=== PATIENT | female | born 1945 | race Caucasian/White ===

== ENCOUNTER 2016-05-06 09:19 | Inpatient (IN) | payer OTHER, MEDICARE ==
[2016-05-06] VITALS (7 sets, daily range): BP systolic 128–191; BP diastolic 59–99; PULSE 60–92; RESP 18–26; TEMP 98.2–98.7; O2SAT 96–98
--- NOTE | 2016-05-06 09:48 | PD ---
Physical Exam Date Seen by Provider: May 06, 2016 Time Seen by Provider: 09:40 Narrative Patient seen as a courtesy to Dr. Pardo who had accepted the patient overnight from [facility] as a transfer, patient had been found on the ground, complaining of a headache, has small punctate intracranial hemorrhage, was transferred here for further neurosurgical care. Patient had elevated INR and was also discussed with Dr. Guillory overnight for medical care. GENERAL: Well-nourished, well-developed pleasant elderly white female patient who is awake and alert, answering questions. SKIN: Warm and dry. HEAD: Normocephalic. NECK: Supple, trachea midline. CARDIOVASCULAR: Regular rate and rhythm without murmurs, gallops, or rubs. RESPIRATORY: Breath sounds equal bilaterally. No accessory muscle use. GASTROINTESTINAL: Abdomen soft, non-tender, nondistended. MUSCULOSKELETAL: No cyanosis, or edema. EXTREMITIES: No clubbing, cyanosis, or edema. No joint tenderness, effusion, or edema noted. Moving all 4 extremities. Data Data Last Documented VS Vital Signs Date Time Temp Pulse Resp B/P Pulse Ox O2 Delivery O2 Flow Rate FiO2 05/06/16 09:27 98.7 60 20 159/99 97 Orders Prothrombin Time / Inr (Pt) (05/06/16 10:38) Consult Neurosurgery (05/06/16 ) [facility] Medical Record Reviewed: Yes Supervised Visit with NEGRA: No Narrative Course Case was discussed with Dr. Pardo who would like the patient to get a repeat INR this morning. She would like the patient to be admitted to [facility] as a consult to her and medical admitted. Case was then discussed with Dr. Hardy for admission. Diagnosis Primary Impression: NONTRAUMATIC INTRACRANIAL HEMORRHAGE, UNSPECIFIED Admitting Information Admitting Physician Requests: Admit Edward Carroll MD May 06, 2016 09:48
[2016-05-06] MEDS ORDERED: PHYT10P IV (09:49)
[2016-05-06] MEDS ORDERED: CITA10TA4 PO (09:49)
[2016-05-06] MEDS ORDERED: AMLO2.5T PO (09:49)
[2016-05-06] MEDS ORDERED: NIMO30CA3 PO (09:49)
[2016-05-06] MEDS ORDERED: DIGO0.12 PO (09:49)
[2016-05-06] MEDS ORDERED: LIAL1.2T PO (09:49)
[2016-05-06] MEDS ORDERED: [UNRECOGNIZED DRUG - CODE] IVPB (09:49)
[2016-05-06] MEDS ORDERED: ASPI81CH CHEW (09:49)
[2016-05-06] MEDS ORDERED: WARF-21 PO (09:49)
[2016-05-06] MEDS ORDERED: METO50TA PO (09:49)
[2016-05-06] MEDS ORDERED: LISI2.5T3 PO (09:49)
[2016-05-06] MEDS ORDERED: ALPR0.25 PO (09:49)
[2016-05-06] MEDS ORDERED: MEMA1TAB2 PO (09:49)
[2016-05-06] MEDS ORDERED: VITA100T50 (09:49)
[2016-05-06] MEDS ORDERED: SODIUM CHLORIDE 0.9% FLUSH 5 ML FLUSH FLUSH PRN (11:00)
[2016-05-06] MEDS ORDERED: BISACODYL 10 MG SUPP PR PRN (11:00)
[2016-05-06] MEDS ORDERED: ACETAMINOPHEN 325 MG TAB PO PRN (11:00)
[2016-05-06] MEDS ORDERED: ENALAPRILAT 1.25 MG/ML VIAL IV PRN (11:00)
[2016-05-06] MEDS ORDERED: ACETAMINOPHEN/HYDROcodone 325 MG/7.5 MG TAB PO PRN (11:00)
[2016-05-06] MEDS ORDERED: SENNOSIDES 8.6 MG TAB PO PRN (11:00)
[2016-05-06] MEDS ORDERED: cloNIDine HCL 0.1 MG TAB PO PRN (11:00)
[2016-05-06] MEDS ORDERED: NALOXONE HCL 0.4 MG/ML AMP IV PRN (11:00)
[2016-05-06] MEDS: DOCUSATE SODIUM 100 MG CAP PO SCH ×2 (12:00→21:35)
--- NOTE | 2016-05-06 12:14 | PD.CONS ---
HPI Service Neurosurgery Consult Requested By ED Reason for Consult Closed head injury with LOC and intracranial bleed Primary Care Physician Eldaia Bernabe DO History of Present Illness 70 yr old with hx of falls fell yesterday at home, was brought in to the ED with a GCS of 15. Evaluation revealed a traumatic SAH/SDH. She remains a GCS 15 with baseline dementia. She was on coumadin for afib and her INR is 4.0. She states she does not want IV, care or blood draws and does not care if she dies. She received KCENTRA at the outside hospital, and she is refusing follow up INR. Review of Systems ROS Limitations: Altered Mental Status, Combative, Poor Historian Musculoskeletal: COMPLAINS OF: Joint pain (left shoulder and back pain) Neurologic: COMPLAINS OF: Poor Balance (frequent falls) Past Family Social History Allergies: Coded Allergies: Cipro (Verified Allergy, Severe, Anaphylaxis, 05/06/16) Past Medical History Afib, CAD, HTN Diverticulitis Osteopenia, arthritis Past Surgical History CABG Hysterectomy Cataract surgery Reported Medications Reported Meds & Active Scripts Active Reported Alprazolam 0.25 Mg Tab 0.25 Mg PO DAILY PRN Lialda (Mesalamine) 1.2 Gm Tabdr 1.2 Gm PO DAILY Take with a meal. Lisinopril 2.5 Mg Tab 2.5 Mg PO DAILY Aspirin 81 Mg Chew 81 Mg CHEW DAILY Memantine 10 Mg Tab 10 Mg PO DAILY Digoxin 0.125 Mg Tab 0.125 Mg PO DAILY Citalopram (Citalopram Hydrobromide) 10 Mg Tab 10 Mg PO DAILY Amlodipine (Amlodipine Besylate) 2.5 Mg Tab 2.5 Mg PO DAILY Warfarin 7.5 Mg Tab 7.5 Mg PO DAILY Metoprolol Tartrate 50 Mg Tab 50 Mg PO BID Kcentra Kit (Prothrombin Complex Concent (Human)) 1,000 Unit Kit 2,271.5 IVPB ONCE Vitamin K1 Inj (Phytonadione) 10 Mg/Ml Inj 10 Mg IV ONCE Vitamin K (Phytonadione) 100 Mcg Tab Nimodipine 30 Mg Cap 60 Mg PO ONCE Family History Not knwn Social History Lives with the daughter, does not smoke Physical Exam Vital Signs Vital Signs Date Time Temp Pulse Resp B/P Pulse Ox O2 Delivery O2 Flow Rate FiO2 05/06/16 09:27 98.7 60 20 159/99 97 Alert and combative, speech fluent in salvadorean and moroccan, attention good but very angry, does follow simple commands with all 4 extremities, No facial trauma, generalized pain but refuses pain medication because of sedating side effects Oriented to the hospital and events, as well as to the bleed. Motor good except in the left shoulder but abduction is at least 3/5 Sensation present in all extremities No spasticity or clonus Laboratory Na 141, hgb 14.3, pts 246, INR 4.7, Imaging Head CT shows cerebral atrophy, diffuse SAH and small falcine and tentorial SDH 1-2 mm. Assessment and Plan Diagnosis: (1) SAH (subarachnoid hemorrhage) Plan: We will repeat the CT in the morning and obtain rehab services. The bleed is small and her coumadin was reversed. (2) SDH (subdural hematoma) Plan: Will be followed radiologically and clinically (3) Frequent falls Plan: Gait assessment requested as part of the rehab care Guanaco Pardo May 06, 2016 12:14
[2016-05-06] MEDS ORDERED: ALPRAZolam 0.25 MG TAB PO PRN (13:45)
[2016-05-06] MEDS: hydrALAZINE HCL 20 MG/ML VIAL IV PRN ×2 (14:09→18:24)
[2016-05-06] MEDS ORDERED: PILL SPLITTER OTHER PRN (14:15)
[2016-05-06 16:57] LABS: INTERNATIONAL NORMALIZED RATIO 1.1 RATIO
--- NOTE | 2016-05-06 17:38 | HHI.HP ---
HPI Service [facility] Hospitalists Primary Care Physician Eladia Bernabe DO Admission Diagnosis ICH/elevated inr Diagnoses: Chief Complaint: Supratherapeutic INR, SAH/SDH Travel History International Travel<30 Days: No Contact w/Intl Traveler <30 Da: No Traveled to Known Affected Are: No History of Present Illness Patient is a 70-year-old female with primary medical history includes A. fib on Coumadin, HLD, HTN, history of CVA, dementia, who came in to [facility] status post fall. As per her daughter Trisha, patient was in her bedroom and her [id number] heard a thump coming from her bedroom. She was found lying on the floor on her right side. Reports no lost of consciousness. Patient on Coumadin for A. fib found to have an INR of 4.7. She was given K Centra, Nimodipine, vitamin K at [facility]. Transferred to [facility] for further evaluation. CT of the head and brain without contrast showed multiple small patchy areas of acute arachnoid hemorrhage, within the bilateral frontal regions, within the right posterior parietal region, and the bilateral medial parietaloccipital regions as well as possibly along the left tentorium. Diffuse cerebral volume loss and chronic sequelae of small vessel ischemic disease. X-ray of the pelvis showed no fracture or dislocation or other acute abnormality. Degenerative spondylosis of the spine with some mild osteoarthritis of the hips. Demineralization. X-ray of the right shoulder showed normal right shoulder. X-ray of the lumbar spine showed no fracture, dislocation or other acute abnormality. Demineralization with multilevel degenerative spondylosis. Atherosclerotic vascular calcification. Chest x-ray showed no ede pulmonary edema, consolidation, or pleural effusion identified at this time. Interval development of minimal left basilar subsegmental atelectasis. Stable diffuse chronic interstitial change. Stable post-median sternotomy changes and moderate nonspecific glasgow-cardiomegaly. Patient states she hasn't been feeling well since yesterday. Today she feels "yucky" complaints of headache and nausea. Confused, forgetful secondary to dementia. Otherwise, denies SOB/ dyspnea. Denies chest pain, palpitation, dizziness. Denies fevers, chills, vomiting, diarrhea. As per daughter, patient is always irritable and uncooperative at times. Daughter denies any changes in medications. This is still second time patient has fallen from the past. Review of Systems ROS Limitations: Poor Historian Other Negative except for what is noted on history of present illness. Past Family Social History Past Medical History Angina Anxiety Depression A. fib, on Coumadin Diverticulitis Hyperlipidemia Hypertension Migraines Dementia CVA Past Surgical History CABG 3 Cataract surgery Hysterectomy Reported Medications Alprazolam 0.25 Mg Tab 0.25 Mg PO DAILY PRN Lialda (Mesalamine) 1.2 Gm Tabdr 1.2 Gm PO DAILY Take with a meal. Lisinopril 2.5 Mg Tab 2.5 Mg PO DAILY Aspirin 81 Mg Chew 81 Mg CHEW DAILY Memantine 10 Mg Tab 10 Mg PO DAILY Digoxin 0.125 Mg Tab 0.125 Mg PO DAILY Citalopram (Citalopram Hydrobromide) 10 Mg Tab 10 Mg PO DAILY Amlodipine (Amlodipine Besylate) 2.5 Mg Tab 2.5 Mg PO DAILY Warfarin 7.5 Mg Tab 7.5 Mg PO DAILY Metoprolol Tartrate 50 Mg Tab 50 Mg PO BID Kcentra Kit (Prothrombin Complex Concent (Human)) 1,000 Unit Kit 2,761.5 IVPB ONCE Vitamin K1 Inj (Phytonadione) 10 Mg/Ml Inj 10 Mg IV ONCE Vitamin K (Phytonadione) 100 Mcg Tab Nimodipine 30 Mg Cap 60 Mg PO ONCE Allergies: Coded Allergies: Cipro (Verified Allergy, Severe, Anaphylaxis, 05/06/16) Active Ordered Medications Current Medications Medications (Trade) Dose Ordered Sig/Michelle Route Start Time Stop Time Status Last Admin (NS Flush) 2 ml UNSCH PRN FLUSH 05/06/16 11:00 05/06/16 14:09 (NS Flush) 2 ml BID FLUSH 05/06/16 21:00 (Tylenol) 650 mg Q4H PRN PO 05/06/16 11:00 (Zofran Inj) 4 mg Q6H PRN IVP 05/06/16 11:00 (Dulcolax Supp) 10 mg DAILY PRN CA 05/06/16 11:00 (Colace) 100 mg Q12HR PO 05/06/16 12:00 (Senokot) 17.2 mg Q12H PRN PO 05/06/16 11:00 (Tylenol) 650 mg Q6H PRN PO 05/06/16 11:00 (Questa 5-325 Mg) 1 tab Q4H PRN PO 05/06/16 11:00 (Questa 7.5-325 Mg) 1 tab Q4H PRN PO 05/06/16 11:00 (Morphine Inj) 1 mg Q3H PRN IV 05/06/16 11:00 (Narcan Inj) 0.4 mg UNSCH PRN IV 05/06/16 11:00 (Vasotec Inj) 1.25 mg Q6H PRN IV 05/06/16 11:00 (Apresoline Inj) 10 mg Q6H PRN IV 05/06/16 11:00 05/06/16 14:09 (Catapres) 0.1 mg Q6H PRN PO 05/06/16 11:00 (Xanax) 0.25 mg DAILY PRN PO 05/06/16 13:45 (Norvasc) 2.5 mg DAILY PO 05/07/16 09:00 (CeleXA) 10 mg DAILY PO 05/07/16 09:00 (Lanoxin) 0.125 mg DAILY PO 05/07/16 09:00 (Prinivil) 2.5 mg DAILY PO 05/07/16 09:00 (Namenda) 10 mg DAILY PO 05/07/16 09:00 (Lopressor) 50 mg BID PO 05/06/16 21:00 Patient Own Medication PT OWN MED: (Mesalam... DAILY PO 05/07/16 09:00 (Pill Splitter) 1 ea UNSCH PRN OTHER 05/06/16 14:15 Family History Father of stomach cancer Mother with hypertension Social History Lives with daughter Trisha. Has 7 children. Denies alcohol use Denies tobacco use Denies illicit drug use Physical Exam Vital Signs Vital Signs Date Time Temp Pulse Resp B/P Pulse Ox O2 Delivery O2 Flow Rate FiO2 05/06/16 15:22 86 18 186/76 98 05/06/16 14:08 76 20 191/80 97 05/06/16 12:14 70 20 184/79 96 05/06/16 09:27 98.7 60 20 159/99 97 Physical Exam GENERAL: This is a well-nourished, well-developed patient, in no apparent distress. SKIN: Abrasion upper back. Cool and dry. HEAD: Atraumatic. Normocephalic. No temporal or scalp tenderness. EYES: Pupils equal round and reactive. Extraocular motions intact. No scleral icterus. No injection or drainage. ENT: Nose without bleeding. Throat without erythema. Uvula midline. Airway patent. NECK: Trachea midline. No JVD or lymphadenopathy. Supple, nontender, no meningeal signs. CARDIOVASCULAR: Irregularly irregular rate and rhythm without murmurs, gallops, or rubs. RESPIRATORY: Clear to auscultation. Breath sounds equal bilaterally. No wheezes , rales, or rhonchi. GASTROINTESTINAL: Abdomen soft, non-tender, nondistended. No guarding. MUSCULOSKELETAL: Extremities without clubbing, cyanosis, or edema. No joint tenderness, effusion, or edema noted. No calf tenderness. Negative Homans sign bilaterally. NEUROLOGICAL: Awake and alert. Confused. Motor and sensory grossly within normal limits. 4 out of 5 muscle strength in all muscle groups. Normal speech. Laboratory Outside labs reviewed CBC unremarkable, BMP with slightly elevated creatinine 1.5 INR of 4.7. Repeat INR 1 Imaging As mentioned in the history of present illness Assessment and Plan Problem List: (1) SAH (subarachnoid hemorrhage) ICD Code: I60.9 Status: Acute (2) SDH (subdural hematoma) ICD Code: I62.00 Status: Acute (3) Supratherapeutic INR ICD Code: R79.1 Status: Acute (4) HLD (hyperlipidemia) ICD Code: E78.5 Status: Chronic (5) HTN (hypertension) ICD Code: I10 Status: Chronic (6) Dementia ICD Code: F03.90 Status: Chronic Assessment and Plan Patient is a 70-year-old female came in to [facility] status post fall. Patient on Coumadin for A. fib found to have an INR of 4.7. She was given K Centra, Nimodipine, vitamin K at [facility]. Transferred to [facility] for further evaluation. SAD/ SDH - CT of the head and brain without contrast showed multiple small patchy areas of acute arachnoid hemorrhage, within the bilateral frontal regions, within the right posterior parietal region, and the bilateral medial parietal occipital regions as well as possibly along the left tentorium. Diffuse cerebral volume loss and chronic sequelae of small vessel ischemic disease. - Neurosurgery consulted. As per neurosurgery, will not use nimodipine as SAH will not cause spasms secondary to fall, if it was an aneurysm nimodipine is warranted. - Admit to [facility] for closer monitoring. Neuro checks. - Repeat CT in the morning - PT to treat and evaluate haven. Supratherapeutic INR - INR 4.7 - Check INR now, If INR is greater than 2.5, will reverse. INR 1.1 - Recheck INR tomorrow Status post fall, no loss of consciousness X-ray of the pelvis showed no fracture or dislocation or other acute abnormality. Degenerative spondylosis of the spine with some mild osteoarthritis of the hips. Demineralization. X-ray of the right shoulder showed normal right shoulder. X-ray of the lumbar spine showed no fracture, dislocation or other acute abnormality. Demineralization with multilevel degenerative spondylosis. Atherosclerotic vascular calcification. Chest x-ray showed no ede pulmonary edema, consolidation, or pleural effusion identified at this time. Interval development of minimal left basilar subsegmental atelectasis. Stable diffuse chronic interstitial change. Stable post-median sternotomy changes and moderate nonspecific glasgow-cardiomegaly. HTN - amlodipine 2.5 mg, lisinopril 2.5 mg, metoprolol 50 mg twice a day -Vasotec when necessary, hydralazine when necessary, clonidine 0.1 when necessary SBP >180 -Monitor BP trend. A. fib - EKG interpreted by me A. fib, slow ventricular rate 60 - Continue metoprolol, digoxin Anxiety/depression-continue citalopram, alprazolam Dementia -continue Namenda DVT prop SCD Written by Ricco Olivares, acting as scribe for Dr. Hardy on 05/06/16 at 17: 08. The documentation accurately reflects the work performed [id number] by me on at 17:08 Code Status Full code Discussed Condition With Patient, family, nursing, Dr. Pardo Physician Certification 2 Midnight Certification Type: Admission for Inpatient Services Order for Inpatient Services The services are ordered in accordance with Medicare regulations or non- Medicare payer requirements, as applicable. In the case of services not specified as inpatient-only, they are appropriately provided as inpatient services in accordance with the 2-midnight benchmark. Estimated LOS (days): 3 days is the estimated time the patient will need to remain in the hospital, assuming treatment plan goals are met and no additional complications. Post-Hospital Plan: Not yet determined Ricco Godinez May 06, 2016 17:38 Meek Hardy MD May 06, 2016 17:43
[2016-05-06] MEDS: ACETAMINOPHEN/HYDROcodone 325 MG/5 MG TAB PO PRN (18:45)
[2016-05-06] MEDS: MORPHINE SULFATE 4 MG/ML INJ IV PRN (19:00)
[2016-05-06] MEDS: ONDANSETRON HCL 4 MG/2 ML VIAL IVP PRN (19:04)
[2016-05-06] MEDS: METOPROLOL TARTRATE 50 MG TAB PO SCH (21:00)
[2016-05-06] MEDS: SODIUM CHLORIDE 0.9% FLUSH 5 ML FLUSH FLUSH SCH (21:36)
[2016-05-07] VITALS (13 sets, daily range): BP systolic 129–154; BP diastolic 60–79; PULSE 58–98; RESP 20–26; TEMP 98.3–98.8; O2SAT 95–97
[2016-05-07] MEDS: ACETAMINOPHEN/HYDROcodone 325 MG/5 MG TAB PO PRN (00:37)
[2016-05-07] MEDS ORDERED: EPINEPHrine HCL (1:10,000) 1 MG/10 ML SYRINGE ONE (04:15)
[2016-05-07] MEDS ORDERED: LIDOCAINE HCL 2% 100 MG/5 ML SYRINGE ONE (04:15)
[2016-05-07] MEDS ORDERED: ATROPINE SULFATE 1 MG/10 ML SYRINGE ONE (04:15)
[2016-05-07 04:29] LABS: AUTOMATED NEUTROPHIL # 5.9 TH/MM3 (1.8-7.7); BASOPHIL % 0.6 % (0.0-2.0); EOSINOPHIL # 0.1 TH/MM3 (0-0.4); EOSINOPHIL % 0.8 % (0.0-4.0); HEMATOCRIT 46.6 % (35.0-46.0); HEMO FLAGS DIFF FINAL; LYMPH % 16.1 % (9.0-44.0); LYMPHOCYTE # 1.3 TH/MM3 (1.0-4.8); MEAN CELL VOLUME 88.1 FL (80.0-100.0); MEAN CORPUSCULAR HGB CONC 32.9 % (32.0-36.0); MONO % 12.5 % (0.0-8.0); PLATELET COUNT 270 TH/MM3 (150-450); RED BLOOD COUNT 5.29 MIL/MM3 (4.00-5.30); RED CELL DISTRIBUTION WIDTH 16.4 % (11.6-17.2); WHITE BLOOD COUNT 8.4 TH/MM3 (4.0-11.0)
[2016-05-07 04:33] LABS: PROTHROMBIN TIME - PATIENT 10.9 SEC (9.8-11.6)
[2016-05-07 04:49] LABS: BICARBONATE 23.9 MEQ/L (21.0-32.0); POTASSIUM 3.7 MEQ/L (3.5-5.1)
--- NOTE | 2016-05-07 06:45 | RADRPT ---
EXAM DATE/TIME: 05/07/2016 04:24 [place] COMPARISON: No previous studies available for comparison. INDICATIONS : Follow up bleed. RADIATION DOSE: 38.39 CTDIvol (mGy) MEDICAL HISTORY : Dementia. Hypertension. CVA SURGICAL HISTORY : None. ENCOUNTER: Initial ACUITY: 1 day PAIN SCALE: Non-responsive LOCATION: cranial TECHNIQUE: Multiple contiguous axial images were obtained of the head. Using automated exposure control and adj ustment of the mA and/or kV according to patient size, radiation dose was kept as low as reasonably a chievable to obtain optimal diagnostic quality images. FINDINGS: Patchy subarachnoid hemorrhage is evident, mainly over the high convexities and in the occipital jayda ons and along the tentorium. No significant drainable collection. Patchy mild diminished attenuation deep white matter. Small area of encephalomalacia in the right frontotemporal region. Extracranial st ructures are grossly benign but intact. CONCLUSION: Patchy subarachnoid blood. No comparisons. Shen Hu MD on May 07, 2016 at 6:41 Board Certified Radiologist. This report was verified electronically.
[2016-05-07] MEDS ORDERED: MESALAMINE 1.2 GM PO SCH (09:00)
[2016-05-07] MEDS: MEMANTINE HCL 10 MG TAB PO SCH (12:48)
[2016-05-07] MEDS: DIGOXIN 0.125 MG TAB PO SCH (12:48)
[2016-05-07] MEDS: METOPROLOL TARTRATE 50 MG TAB PO SCH (12:48)
[2016-05-07] MEDS: amLODIPine BESYLATE 5 MG TAB PO SCH (12:48)
[2016-05-07] MEDS: DOCUSATE SODIUM 100 MG CAP PO SCH ×2 (12:48→20:27)
[2016-05-07] MEDS: SODIUM CHLORIDE 0.9% FLUSH 5 ML FLUSH FLUSH SCH ×2 (12:49→20:49)
[2016-05-07] MEDS: CITALOPRAM HYDROBROMIDE 20 MG TAB PO SCH (12:49)
[2016-05-07] MEDS: LISINOPRIL 5 MG TAB PO SCH (12:50)
--- NOTE | 2016-05-07 15:15 | HHI.NSPN ---
Subjective History 70 year old presented after several falls. She has dementia and daughter is involved in her care. She was complaining of pain yesterday but is more comfortable today. Her repeat CT shows diffuse small SAH. Vitals . Vital Signs Date Time Temp Pulse Resp B/P Pulse Ox O2 Delivery O2 Flow Rate FiO2 05/07/16 08:00 96 Room Air 05/07/16 08:00 98.6 84 20 140/79 96 05/07/16 08:00 85 05/07/16 06:00 84 05/07/16 04:00 84 05/07/16 04:00 98.3 84 25 154/72 95 05/07/16 02:00 82 05/07/16 00:00 98.3 84 21 134/60 95 05/07/16 00:00 84 05/06/16 22:00 78 05/06/16 20:00 85 05/06/16 20:00 98.2 92 26 128/59 98 05/06/16 19:00 98 Room Air 05/06/16 17:46 89 20 187/86 98 05/06/16 15:22 86 18 186/76 98 05/06/16 05/06/16 05/07/16 15:00 23:00 07:00 Intake Total 140 ml 240 ml Output Total 400 ml Balance -260 ml 240 ml Physical Exam Head Head: Atraumatic Eyes Eyes Remarks pupils post surgical Neuro Mental Status: Confused Face: Symmetric [place] Coma Scale Best Eye Openin - Spontaneous Best Verbal: 4 - Confused Best Motor: 6 - Obeys Sensation: Intact Musculoskeletal Extremities Upper Extremities Deltoid Bicep Tricep HI W. Ext Right Left Lower Extremeties Ilio Quad Plantar Dorsi EHL Right Left Musculoskeletal Remarks No pronator drift today moves all extremities with good strength except the left shoulder abduction Objective Labs Laboratory Tests 05/07/16 04:00 Laboratory Tests Test 05/07/16 04:00 Sodium Level 140 MEQ/L Potassium Level 3.7 MEQ/L Chloride Level 104 MEQ/L Carbon Dioxide Level 23.9 MEQ/L Anion Gap 12 MEQ/L Blood Urea Nitrogen 15 MG/DL Creatinine 1.05 MG/DL Estimat Glomerular Filtration 52 ML/MIN Rate Random Glucose 100 MG/DL Calcium Level 8.7 MG/DL Imaging Remarks Last Impressions Head CT 05/07/16 0600 Signed Impressions: Service Date/Time: April 04:24 - CONCLUSION: Patchy subarachnoid blood. No comparisons. Shen Hu MD Assessment & Plan Diagnosis: (1) SAH (subarachnoid hemorrhage) Plan: The head CT is consistent with a severe closed head injury. No new clots are evident on CT this am. Rehab services are following.Her coumadin was reversed and can be restarted in 7 days if necessary with INR 2-2.5 (2) SDH (subdural hematoma) Plan: Will be followed radiologically and clinically, has now improved (3) Frequent falls Plan: Gait assessment requested as part of the rehab care Critical Care Time (minutes): 10 Guanaco Pardo May 07, 2016 15:15
--- NOTE | 2016-05-07 16:36 | HHI.PR ---
Subjective Remarks Follow up for fall, SAH. The patient is seen sitting upright in bedside recliner. She has no complaints. Denies any headache, lightheadedness, dizziness. RN reports the patient is confused at times, tries to get out of bed/ chair without asking for help. Objective Vitals Vital Signs Date Time Temp Pulse Resp B/P Pulse Ox O2 Delivery O2 Flow Rate FiO2 05/07/16 14:00 98 05/07/16 12:00 98.8 96 21 129/66 97 05/07/16 12:00 96 05/07/16 10:00 93 05/07/16 08:00 96 Room Air 05/07/16 08:00 98.6 84 20 140/79 96 05/07/16 08:00 85 05/07/16 06:00 84 05/07/16 04:00 84 05/07/16 04:00 98.3 84 25 154/72 95 05/07/16 02:00 82 05/07/16 00:00 98.3 84 21 134/60 95 05/07/16 00:00 84 05/06/16 22:00 78 05/06/16 20:00 85 05/06/16 20:00 98.2 92 26 128/59 98 05/06/16 19:00 98 Room Air 05/06/16 17:46 89 20 187/86 98 I/O 05/06/16 05/06/16 05/06/16 05/07/16 05/07/16 05/07/16 07:00 15:00 23:00 07:00 15:00 23:00 Intake Total 140 ml 240 ml 440 ml Output Total 400 ml Balance -260 ml 240 ml 440 ml Intake Oral 140 ml 240 ml 440 ml IV Total 0 ml 0 ml 0 ml Output Urine Total 400 ml # Voids 1 1 2 # Bowel Movements 0 0 Result Diagram: 05/07/16 0400 05/07/16 0400 Imaging Last Impressions Head CT 05/07/16 0600 Signed Impressions: Service Date/Time: April 04:24 - CONCLUSION: Patchy subarachnoid blood. No comparisons. Shen Hu MD Objective Remarks GENERAL: Well-nourished, well-developed pleasantly demented elderly female patient in NAD. Sitting upright in bedside chair, in Harvest vest. SKIN: Warm and dry. No rash. HEAD: Normocephalic. Atraumatic. EYES: Pupils equal and round. No scleral icterus. No injection or drainage. ENT: No nasal bleeding or discharge. Mucous membranes pink and moist. NECK: Supple. Trachea midline. CARDIOVASCULAR: Regular rate and rhythm. S1, S2 noted. No murmur appreciated. RESPIRATORY: No accessory muscle use. Clear to auscultation. Breath sounds equal bilaterally. GASTROINTESTINAL: Abdomen soft, non-tender, nondistended. Normoactive bowel sounds x4. MUSCULOSKELETAL: No obvious deformities. Extremities without clubbing, cyanosis , or edema. NEUROLOGICAL: Awake and alert, oriented to self. No obvious cranial nerve deficits. Motor grossly within normal limits. Normal speech. PSYCHIATRIC: Appropriate mood and affect; insight and judgment limited Medications and IVs Current Medications Medications (Trade) Dose Ordered Sig/Michelle Route Start Time Stop Time Status Last Admin (NS Flush) 2 ml UNSCH PRN FLUSH 05/06/16 11:00 05/06/16 14:09 (NS Flush) 2 ml BID FLUSH 05/06/16 21:00 05/07/16 12:49 (Tylenol) 650 mg Q4H PRN PO 05/06/16 11:00 (Zofran Inj) 4 mg Q6H PRN IVP 05/06/16 11:00 05/06/16 19:04 (Dulcolax Supp) 10 mg DAILY PRN [place] 05/06/16 11:00 (Colace) 100 mg Q12HR PO 05/06/16 12:00 05/07/16 12:48 (Senokot) 17.2 mg Q12H PRN PO 05/06/16 11:00 (Tylenol) 650 mg Q6H PRN PO 05/06/16 11:00 ([place] 5-325 Mg) 1 tab Q4H PRN PO 05/06/16 11:00 05/07/16 00:37 ([place] 7.5-325 Mg) 1 tab Q4H PRN PO 05/06/16 11:00 (Morphine Inj) 1 mg Q3H PRN IV 05/06/16 11:00 05/06/16 19:00 (Narcan Inj) 0.4 mg UNSCH PRN IV 05/06/16 11:00 (Vasotec Inj) 1.25 mg Q6H PRN IV 05/06/16 11:00 (Apresoline Inj) 10 mg Q6H PRN IV 05/06/16 11:00 05/06/16 18:24 (Catapres) 0.1 mg Q6H PRN PO 05/06/16 11:00 (Xanax) 0.25 mg DAILY PRN PO 05/06/16 13:45 (Norvasc) 2.5 mg DAILY PO 05/07/16 09:00 05/07/16 12:48 (CeleXA) 10 mg DAILY PO 05/07/16 09:00 05/07/16 12:49 (Lanoxin) 0.125 mg DAILY PO 05/07/16 09:00 05/07/16 12:48 (Prinivil) 2.5 mg DAILY PO 05/07/16 09:00 05/07/16 12:50 (Namenda) 10 mg DAILY PO 05/07/16 09:00 05/07/16 12:48 Patient Own Medication PT OWN MED: (Mesalam... DAILY PO 05/07/16 09:00 (Pill Splitter) 1 ea UNSCH PRN OTHER 05/06/16 14:15 (Lopressor) 25 mg BID PO 05/07/16 21:00 A/P Problem List: (1) SAH (subarachnoid hemorrhage) ICD Code: I60.9 Status: Acute (2) SDH (subdural hematoma) ICD Code: I62.00 Status: Acute (3) Supratherapeutic INR ICD Code: R79.1 Status: Acute (4) HLD (hyperlipidemia) ICD Code: E78.5 Status: Chronic (5) HTN (hypertension) ICD Code: I10 Status: Chronic (6) Dementia ICD Code: F03.90 Status: Chronic Assessment and Plan 70-year-old female with hx of Afib on Coumadin, CAD, HTN, arthritis, initially presented to [facility] s/p fall. Found to have an INR of 4.7. She was given K Centra, Nimodipine, vitamin K at [facility]. Transferred to [facility] for further evaluation. Subarachnoid Hemorrhage: CT head images reviewed, showed multiple small patchy areas of acute arachnoid hemorrhage, within the bilateral frontal regions, right posterior parietal region, and bilateral medial parietaloccipital regions. - Neurosurgery consulted, will not use nimodipine as SAH will not cause spasms secondary to fall, if it was an aneurysm nimodipine is warranted. - Admitted to [facility] for closer monitoring. Neuro checks. - Repeat CT today showed patchy subarachnoid blood - PT consulted - Appreciate neurosurgery assistance Supratherapeutic INR - INR 4.7. S/p Vit K at [facility]. - Repeat INR 1.1 - Per neurosurgery, can restart Coumadin in 1 week (05/14) if necessary with INR 2-2.5 Status post fall, no loss of consciousness : Imaging done at [facility]: -X-ray pelvis showed no fracture or dislocation or other acute abnormality; Degenerative spondylosis of the spine with some mild osteoarthritis of the hips. -X-ray right shoulder showed normal right shoulder. -X-ray lumbar spine showed no fracture, dislocation or other acute abnormality. Demineralization with multilevel degenerative spondylosis. Atherosclerotic vascular calcification. -Chest x-ray showed no ede pulmonary edema, consolidation, or pleural effusion identified at this time. Interval development of minimal left basilar subsegmental atelectasis. Stable diffuse chronic interstitial change. Stable post-median sternotomy changes and moderate nonspecific glasgow-cardiomegaly. -PT consulted as above HTN - continue amlodipine 2.5 mg, lisinopril 2.5 mg, metoprolol 25 bid -Vasotec, clonidine, hydralazine all available prn -Monitor BP trend. A. fib - EKG interpreted by Tonny oconnell fib, slow ventricular rate 60 - Continue metoprolol, digoxin Anxiety/depression-continue citalopram, alprazolam Dementia -continue Namenda. Harvest vest restraint prn to prevent recurrent fall. DVT prophylaxis: SCD, chemoprophylaxis contraindicated with SAH as above Written by Jane Leon, acting as scribe for Dr. Hardy on 05/07/16 at 15: 45. The documentation accurately reflects the work performed [id number] by me on at 1545 Discharge Planning rehab vs [facility] Jane Leon PA-C May 07, 2016 16:36 Meek Hardy MD May 07, 2016 16:42
[2016-05-07] MEDS: METOPROLOL TARTRATE 25 MG TAB PO SCH (20:27)
[2016-05-07] MEDS: ACETAMINOPHEN 325 MG TAB PO PRN (20:28)
[2016-05-08] VITALS (9 sets, daily range): BP systolic 116–168; BP diastolic 59–71; PULSE 60–78; RESP 20–25; TEMP 97.8–98.4; O2SAT 95–100
[2016-05-08] MEDS: ACETAMINOPHEN 325 MG TAB PO PRN ×2 (05:30→17:49)
[2016-05-08] MEDS: hydrALAZINE HCL 20 MG/ML VIAL IV PRN (05:30)
[2016-05-08] MEDS: MORPHINE SULFATE 4 MG/ML INJ IV PRN (06:22)
[2016-05-08] MEDS: CITALOPRAM HYDROBROMIDE 20 MG TAB PO SCH (08:49)
[2016-05-08] MEDS: DIGOXIN 0.125 MG TAB PO SCH (08:49)
[2016-05-08] MEDS: DOCUSATE SODIUM 100 MG CAP PO SCH ×2 (08:49→20:46)
[2016-05-08] MEDS: LISINOPRIL 5 MG TAB PO SCH (08:49)
[2016-05-08] MEDS: amLODIPine BESYLATE 5 MG TAB PO SCH (08:49)
[2016-05-08] MEDS: SODIUM CHLORIDE 0.9% FLUSH 5 ML FLUSH FLUSH SCH ×2 (08:50→20:48)
[2016-05-08] MEDS: MEMANTINE HCL 10 MG TAB PO SCH (08:50)
[2016-05-08] MEDS: LIALDA 1.2 GM PO SCH (08:50)
[2016-05-08] MEDS: METOPROLOL TARTRATE 25 MG TAB PO SCH ×2 (08:50→20:47)
[2016-05-08] MEDS: ONDANSETRON HCL 4 MG/2 ML VIAL IVP PRN (10:38)
--- NOTE | 2016-05-08 15:02 | MB ---
cc: JORGE GERMAIN MD DATE OF CONSULTATION: 05/08/2016 REASON FOR CONSULTATION: This is a 70-year-old [place] female was seen per request Dr. Hardy for evaluation of her depression. I saw the patient in her room where her daughters were present. According to the daughters, the patient has been diagnosed with dementia and depression and has been evaluated by psychiatrist in the past and she has been taking Celexa 10 mg daily and p.r.n. Xanax to help her sleep. Reportedly the patient has been sometimes talking to herself gets easily upset, mad, angry, sad and depressed but does not wish to continue to see a psychiatrist as an outpatient. She denied any suicidal ideation, intentions or plans. Reportedly the patient has been hospitalized once in [place] about 3 or 4 years ago. The patient has been living with her daughter in [place]. Denies any history of alcohol or drug use and/or abuse. 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 The patient became more depressed and not active. She tries to go to some of the groups and social activity. BACKGROUND HISTORY: The patient was born in [place]. She has three sisters and five brothers. She lost her parents when she was very young. Her father of cancer. Her mother also when the patient was young and does not remember much. She claimed that her childhood was very rough, depressed and unhappy but denied any physical, verbal or sexual abuse growing up. 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 Denied any history of alcohol or drug use and/or abuse. She has been once when she was about 22 and she had been with two other man. The patient has seven children, six daughters and one son. Lately she has been having some difficulty with her memory. PAST PSYCHIATRIC HISTORY As described earlier. It is questionable but she was hospitalized once for depression and has been diagnosed with dementia. The daughter reported that she has been depressed for a long time. But has never attempted suicide. FAMILY HISTORY: Family history is negative for any emotional difficulty nervous breakdown or suicide attempt or alcoholism. MENTAL STATUS EXAM This is a 70-year-old [place] female was alert, oriented x2, cooperative but reluctant to answer and sometimes she would speak in Sinhala and daughter will translate. Her mood was described as feeling not good or depressed, did not wish to talk to a psychiatrist but willing to take the medication. Her affect was restricted. She denied any active and/or passive suicidal and/or homicidal ideation, intentions or plans. Denied any active auditory hallucination however, reportedly the patient sometimes mumbles and talks to herself. No evidence of any paranoia but she is guarded. She seems to be of low average intelligence with poor memory for recent and some remote events. Her insight is fair to limited and her judgment seems to be okay on hypothetical situation. IMPRESSION Dementia with depression. RECOMMENDATIONS At this time I would suggest that we increase her Celexa to 20 mg per day and add trazodone 50 mg at bedtime to help her sleep and lift her depression. The daughter does not wish to start on any major tranquilizer which might help in questionable auditory hallucination or talking to herself, but she is strongly encouraged to seek outpatient psychiatric help upon discharge and the daughter is going to make sure that she does. The side effects and other alternative treatments were explained to the patient and daughter and I thank you very much for allowing me to participate in the care of this patient. ADDENDUM In the diagnosis I believe that she has major depressive disorder chronic recurrent, moderate. Jorge Jj /2:42 PM /8:56 AM
--- NOTE | 2016-05-08 16:15 | HHI.PR ---
Subjective Remarks Follow up for fall, SAH. The patient is seen sitting upright in bed, multiple family members at bedside. She denies any headache, lightheadedness, dizziness. Denies any other medical complaints. Discussed with family regarding restarting Coumadin in 7days with strict INR goal of 2.0-2.5. Patient's daughter reports the patient has INR checked every 10 days through [facility], followed by PCP Dr. Bernabe, however instructed her INR should be checked twice weekly for a few weeks after re-starting INR until stable within range. Family verbalized understanding. Patient and family agrees to rehab placement. Objective Vitals Vital Signs Date Time Temp Pulse Resp B/P Pulse Ox O2 Delivery O2 Flow Rate FiO2 05/08/16 14:50 98.3 71 20 150/68 100 05/08/16 12:00 98.1 72 20 125/68 97 05/08/16 12:00 72 05/08/16 10:00 72 05/08/16 08:00 74 05/08/16 08:00 98.3 74 23 168/71 95 05/08/16 07:00 95 Room Air 05/08/16 06:27 18 05/08/16 06:27 18 05/08/16 06:00 76 05/08/16 04:00 61 05/08/16 04:00 98.2 61 22 168/71 95 05/08/16 02:00 60 05/08/16 00:00 98.4 60 25 141/69 96 05/08/16 00:00 60 05/07/16 22:00 58 05/07/16 20:37 96 21 05/07/16 20:00 98.4 88 26 137/77 97 05/07/16 20:00 88 05/07/16 19:00 96 Room Air 05/07/16 18:00 82 I/O 05/07/16 05/07/16 05/07/16 05/08/16 05/08/16 05/08/16 07:00 15:00 23:00 07:00 15:00 23:00 Intake Total 240 ml 440 ml 240 ml 180 ml Output Total 300 ml 325 ml Balance 240 ml 440 ml -60 ml -145 ml Intake Oral 240 ml 440 ml 240 ml 180 ml IV Total 0 ml 0 ml 0 ml 0 ml Output Urine Total 300 ml 325 ml # Voids 1 2 # Bowel Movements 0 0 0 0 Result Diagram: 05/07/16 0400 05/07/16 0400 Imaging Last Impressions Head CT 05/07/16 0600 Signed Impressions: Service Date/Time: April 04:24 - CONCLUSION: Patchy subarachnoid blood. No comparisons. Shen Hu MD Objective Remarks GENERAL: Well-nourished, well-developed pleasantly demented elderly female patient in NAD. Sitting upright in bed. SKIN: Warm and dry. Left dorsal forearm with well-circumscribed circular papular rash. HEAD: Normocephalic. Atraumatic. EYES: Pupils equal and round. No scleral icterus. No injection or drainage. ENT: No nasal bleeding or discharge. Mucous membranes pink and moist. NECK: Supple. Trachea midline. CARDIOVASCULAR: Regular rate and rhythm. S1, S2 noted. No murmur appreciated. RESPIRATORY: No accessory muscle use. Clear to auscultation. Breath sounds equal bilaterally. GASTROINTESTINAL: Abdomen soft, non-tender, nondistended. Normoactive bowel sounds x4. MUSCULOSKELETAL: No obvious deformities. Extremities without clubbing, cyanosis , or edema. NEUROLOGICAL: Awake and alert, oriented to self. No obvious cranial nerve deficits. Motor grossly within normal limits. Normal speech. PSYCHIATRIC: Appropriate mood and affect; insight and judgment limited Medications and IVs Current Medications Medications (Trade) Dose Ordered Sig/Michelle Route Start Time Stop Time Status Last Admin (NS Flush) 2 ml UNSCH PRN FLUSH 05/06/16 11:00 05/06/16 14:09 (NS Flush) 2 ml BID FLUSH 05/06/16 21:00 05/08/16 08:50 (Tylenol) 650 mg Q4H PRN PO 05/06/16 11:00 (Zofran Inj) 4 mg Q6H PRN IVP 05/06/16 11:00 05/08/16 10:38 (Dulcolax Supp) 10 mg DAILY PRN [place] 05/06/16 11:00 (Colace) 100 mg Q12HR PO 05/06/16 12:00 05/08/16 08:49 (Senokot) 17.2 mg Q12H PRN PO 05/06/16 11:00 (Tylenol) 650 mg Q6H PRN PO 05/06/16 11:00 05/08/16 05:30 ([place] 5-325 Mg) 1 tab Q4H PRN PO 05/06/16 11:00 05/07/16 00:37 ([place] 7.5-325 Mg) 1 tab Q4H PRN PO 05/06/16 11:00 (Morphine Inj) 1 mg Q3H PRN IV 05/06/16 11:00 05/08/16 06:22 (Narcan Inj) 0.4 mg UNSCH PRN IV 05/06/16 11:00 (Vasotec Inj) 1.25 mg Q6H PRN IV 05/06/16 11:00 (Apresoline Inj) 10 mg Q6H PRN IV 05/06/16 11:00 05/08/16 05:30 (Catapres) 0.1 mg Q6H PRN PO 05/06/16 11:00 (Xanax) 0.25 mg DAILY PRN PO 05/06/16 13:45 (Norvasc) 2.5 mg DAILY PO 05/07/16 09:00 05/08/16 08:49 (Lanoxin) 0.125 mg DAILY PO 05/07/16 09:00 05/08/16 08:49 (Prinivil) 2.5 mg DAILY PO 05/07/16 09:00 05/08/16 08:49 (Namenda) 10 mg DAILY PO 05/07/16 09:00 05/08/16 08:50 (Pill Splitter) 1 ea UNSCH PRN OTHER 05/06/16 14:15 (Lopressor) 25 mg BID PO 05/07/16 21:00 05/08/16 08:50 Patient Own Medication PT OWN MED: LIALDA... DAILY PO 05/08/16 09:00 05/08/16 08:50 (CeleXA) 20 mg DAILY PO 05/09/16 09:00 (Desyrel) 50 mg HS PO 05/08/16 21:00 Urinary Catheter: No Vascular Central Line Catheter: No A/P Problem List: (1) SAH (subarachnoid hemorrhage) ICD Code: I60.9 Status: Acute (2) SDH (subdural hematoma) ICD Code: I62.00 Status: Acute (3) Supratherapeutic INR ICD Code: R79.1 Status: Acute (4) HLD (hyperlipidemia) ICD Code: E78.5 Status: Chronic (5) HTN (hypertension) ICD Code: I10 Status: Chronic (6) Dementia ICD Code: F03.90 Status: Chronic Assessment and Plan 70-year-old female with hx of Afib on Coumadin, CAD, HTN, arthritis, initially presented to [facility] s/p fall. Found to have an INR of 4.7. She was given K Centra, Nimodipine, vitamin K at [facility]. Transferred to [facility] for further evaluation. Subarachnoid Hemorrhage: CT head images reviewed, showed multiple small patchy areas of acute arachnoid hemorrhage, within the bilateral frontal regions, right posterior parietal region, and bilateral medial parietaloccipital regions. - Neurosurgery consulted, will not use nimodipine as SAH will not cause spasms secondary to fall, if it was an aneurysm nimodipine is warranted. - Initially admitted to [facility] for closer monitoring, moved to Neuro floor on . - Continue Neuro checks. - Repeat CT 05/07 showed patchy subarachnoid blood - PT consulted, recommends rehab, case management assisting with placement - Appreciate neurosurgery assistance, cleared for d/c to rehab Supratherapeutic INR - INR 4.7. S/p Vit K at [facility]. - Repeat INR 1.0 - Per neurosurgery, can restart Coumadin in 1 week (05/14) with strict INR goal of 2.0-2.5. Discussed with patient & family. Status post fall, no loss of consciousness: Imaging done at [facility] includes: -X-ray pelvis showed no fracture or dislocation or other acute abnormality; Degenerative spondylosis of the spine with some mild osteoarthritis of the hips. -X-ray right shoulder showed normal right shoulder. -X-ray lumbar spine showed no fracture, dislocation or other acute abnormality. Demineralization with multilevel degenerative spondylosis. Atherosclerotic vascular calcification. -Chest x-ray showed no ede pulmonary edema, consolidation, or pleural effusion identified at this time. Interval development of minimal left basilar subsegmental atelectasis. Stable diffuse chronic interstitial change. Stable post-median sternotomy changes and moderate nonspecific glasgow-cardiomegaly. -PT consulted as above, needs rehab placement HTN - continue amlodipine 2.5 mg, lisinopril 2.5 mg, metoprolol 25 bid -Vasotec, clonidine, hydralazine all available prn -Monitor BP trend. A. fib - EKG interpreted by Tonny oconnell fib, slow ventricular rate 60 - Continue metoprolol, digoxin Hx of PE: on Coumadin as above. - plan to continue Coumadin in 1 week (05/14) Anxiety/depression-continue citalopram, alprazolam Dementia -continue Namenda. Mono vest restraint prn to prevent recurrent fall. Depression -patient expressing depression to family. Consulted psychiatry, discussed with Dr. Atkinson, starting Celexa. Tinea Corporis -on left dorsal forearm. Start on Lotrimin. DVT prophylaxis: SCD, chemoprophylaxis contraindicated with SAH as above Written by Jane Leon, acting as scribe for Dr. Hardy on 05/08/16 at 15: 15. The documentation accurately reflects the work performed [id number] by me on at 1515 Discharge Planning Patient is cleared for discharge to SNF once arrangements made, appreciate case management assistance. Jane Leon PA-C May 08, 2016 16:15 Meek Hardy MD May 08, 2016 17:16
[2016-05-08] MEDS ORDERED: TRAZ50TA12 PO (17:19)
[2016-05-08] MEDS ORDERED: ALPR0.25 PO (17:19)
[2016-05-08] MEDS ORDERED: HYDR-3516 PO (17:19)
[2016-05-08] MEDS ORDERED: METO25TA3 PO (17:19)
[2016-05-08] MEDS ORDERED: CLOT1CRE6 TOPICAL (17:19)
[2016-05-08] MEDS ORDERED: CELE20TA PO (17:19)
--- NOTE | 2016-05-08 17:19 | HHI.DCPOC ---
Discharge Care Plan Diagnosis: (1) Frequent falls (2) SAH (subarachnoid hemorrhage) (3) SDH (subdural hematoma) Your Health Problems Are: Difficulty with ADL Exercise Tolerance Goals to Promote Your Health * To prevent worsening of your condition and complications * To maintain your health at the optimal level Directions to Meet Your Goals Take your medications as prescribed Follow your dietary instruction Follow activity as directed Keep your appointments as scheduled Take your immunizations and boosters as scheduled If your symptoms worsen call your PCP, if no PCP go to Urgent Care Center or Emergency Room Smoking is Dangerous to Your Health. Avoid second hand smoke Call the 24-hour hour crisis hotline for domestic abuse at Meek Hardy MD May 08, 2016 17:19
[2016-05-08] MEDS: ACETAMINOPHEN/HYDROcodone 325 MG/5 MG TAB PO PRN (20:46)
[2016-05-08] MEDS: traZODone HCL 50 MG TAB PO SCH (20:46)
[2016-05-08] MEDS: CLOTRIMAZOLE 1% CREAM 15 GM TOPICAL SCH (20:48)
[2016-05-09] VITALS: BP 112/56; PULSE 64; RESP 18; TEMP 97.5; O2SAT 94
[2016-05-09 06:14] VITALS: BP 149/70; PULSE 73; RESP 18; TEMP 97.6; O2SAT 98
[2016-05-09] MEDS: DOCUSATE SODIUM 100 MG CAP PO SCH (09:00)
[2016-05-09] MEDS: SODIUM CHLORIDE 0.9% FLUSH 5 ML FLUSH FLUSH SCH ×2 (09:00→20:17)
[2016-05-09] MEDS: CLOTRIMAZOLE 1% CREAM 15 GM TOPICAL SCH ×2 (09:00→20:17)
[2016-05-09 10:22] VITALS: PULSE 68
[2016-05-09] MEDS: LIALDA 1.2 GM PO SCH (11:19)
[2016-05-09] MEDS: METOPROLOL TARTRATE 25 MG TAB PO SCH ×2 (11:19→20:17)
[2016-05-09] MEDS: DIGOXIN 0.125 MG TAB PO SCH (11:20)
[2016-05-09] MEDS: amLODIPine BESYLATE 5 MG TAB PO SCH (11:20)
[2016-05-09] MEDS: MEMANTINE HCL 10 MG TAB PO SCH (11:21)
[2016-05-09] MEDS: CITALOPRAM HYDROBROMIDE 20 MG TAB PO SCH (11:22)
[2016-05-09] MEDS: LISINOPRIL 5 MG TAB PO SCH (11:22)
[2016-05-09 12:00] VITALS: BP 125/68; PULSE 84; RESP 18; TEMP 98.1; O2SAT 96
--- NOTE | 2016-05-09 12:16 | HHI.PR ---
Subjective Remarks Follow-up depression. Patient smiling. Seen with daughter who states her mother has been saying she is depressed and wants to all her life but no concrete plans. Cleared for discharge by psychiatry after adjusting Celexa and starting trazodone. Discussed with RN Objective Vitals Vital Signs Date Time Temp Pulse Resp B/P Pulse Ox O2 Delivery O2 Flow Rate FiO2 05/09/16 10:22 68 05/09/16 06:14 97.6 73 18 149/70 98 05/09/16 00:00 97.5 64 18 112/56 94 05/08/16 20:00 97.8 78 24 116/59 96 05/08/16 14:50 98.3 71 20 150/68 100 I/O 05/08/16 05/08/16 05/08/16 05/09/16 05/09/16 05/09/16 07:00 15:00 23:00 07:00 15:00 23:00 Intake Total 180 ml Output Total 325 ml Balance -145 ml Intake Oral 180 ml IV Total 0 ml Output Urine Total 325 ml # Voids 1 2 # Bowel Movements 0 0 0 Result Diagram: 05/07/1639905/07/16399 Objective Remarks GENERAL: Well-nourished, well-developed pleasantly demented elderly female patient in NAD. Sitting upright in bed. SKIN: Warm and dry. Left dorsal forearm with well-circumscribed circular papular rash. HEAD: Normocephalic. Atraumatic. EYES: Pupils equal and round. No scleral icterus. No injection or drainage. ENT: No nasal bleeding or discharge. Mucous membranes pink and moist. NECK: Supple. Trachea midline. CARDIOVASCULAR: Regular rate and rhythm. S1, S2 noted. No murmur appreciated. RESPIRATORY: No accessory muscle use. Clear to auscultation. Breath sounds equal bilaterally. GASTROINTESTINAL: Abdomen soft, non-tender, nondistended. Normoactive bowel sounds x4. MUSCULOSKELETAL: No obvious deformities. Extremities without clubbing, cyanosis , or edema. NEUROLOGICAL: Awake and alert, oriented to self. No obvious cranial nerve deficits. Motor grossly within normal limits. Normal speech. PSYCHIATRIC: Appropriate mood and affect; insight and judgment limited Procedures none A/P Problem List: (1) SAH (subarachnoid hemorrhage) ICD Code: I60.9 Status: Acute (2) SDH (subdural hematoma) ICD Code: I62.00 Status: Acute (3) Supratherapeutic INR ICD Code: R79.1 Status: Acute (4) HLD (hyperlipidemia) ICD Code: E78.5 Status: Chronic (5) HTN (hypertension) ICD Code: I10 Status: Chronic (6) Dementia ICD Code: F03.90 Status: Chronic Assessment and Plan 70-year-old female with hx of Afib on Coumadin, CAD, HTN, arthritis, initially presented to [facility] s/p fall. Found to have an INR of 4.7. She was given K Centra, Nimodipine, vitamin K at [facility]. Transferred to [facility] for further evaluation. Subarachnoid Hemorrhage: CT head images reviewed, showed multiple small patchy areas of acute arachnoid hemorrhage, within the bilateral frontal regions, right posterior parietal region, and bilateral medial parietaloccipital regions. - Neurosurgery consulted, will not use nimodipine as SAH will not cause spasms secondary to fall, if it was an aneurysm nimodipine is warranted. - Initially admitted to [facility] for closer monitoring, moved to Neuro floor on . - Continue Neuro checks. - Repeat CT 05/07 showed patchy subarachnoid blood - PT consulted, recommends rehab, case management assisting with placement - Appreciate neurosurgery assistance, cleared for d/c to rehab Supratherapeutic INR - INR 4.7. S/p Vit K at [facility]. - Repeat INR 1.0 - Per neurosurgery, can restart Coumadin(5 mg) in 1 week (05/14) with strict INR goal of 2.0-2.5. Discussed with patient & family. Status post fall, no loss of consciousness: Imaging done at [facility] includes: -X-ray pelvis showed no fracture or dislocation or other acute abnormality; Degenerative spondylosis of the spine with some mild osteoarthritis of the hips. -X-ray right shoulder showed normal right shoulder. -X-ray lumbar spine showed no fracture, dislocation or other acute abnormality. Demineralization with multilevel degenerative spondylosis. Atherosclerotic vascular calcification. -Chest x-ray showed no ede pulmonary edema, consolidation, or pleural effusion identified at this time. Interval development of minimal left basilar subsegmental atelectasis. Stable diffuse chronic interstitial change. Stable post-median sternotomy changes and moderate nonspecific glasgow-cardiomegaly. -PT consulted as above, needs rehab placement HTN - continue amlodipine 2.5 mg, lisinopril 2.5 mg, metoprolol 25 bid -Vasotec, clonidine, hydralazine all available prn -Monitor BP trend. A. fib - EKG interpreted by Tonny oconnell fib, slow ventricular rate 60 - Continue metoprolol, digoxin Hx of PE: on Coumadin as above. - plan to continue Coumadin in 1 week (05/14) Anxiety/depression-continue citalopram, alprazolam Dementia -continue Namenda. [place] vest restraint prn to prevent recurrent fall. Depression -patient expressing depression to family. Consulted psychiatry, discussed with Dr. Atkinson who cleared patient for discharge, increased Celexa and started trazodone. Tinea Corporis -on left dorsal forearm. Start on Lotrimin. DVT prophylaxis: SCD, chemoprophylaxis contraindicated with SAH as above Discharge Planning rehab vs [facility] Meek Hardy MD May 09, 2016 12:16
--- NOTE | 2016-05-09 12:17 | HHI.DS ---
Discharge Summary Admission Date May 06, 2016 at 11:06 Discharge Date: May 11, 2016 Admitting Diagnosis ICH/elevated inr (1) SAH (subarachnoid hemorrhage) ICD Code: I60.9 Diagnosis: Principal (2) SDH (subdural hematoma) ICD Code: I62.00 Diagnosis: Principal (3) Supratherapeutic INR ICD Code: R79.1 Diagnosis: Principal (4) HLD (hyperlipidemia) ICD Code: E78.5 Diagnosis: Secondary (5) HTN (hypertension) ICD Code: I10 Diagnosis: Secondary (6) Dementia ICD Code: F03.90 Diagnosis: Secondary Procedures none Brief History - From Admission Patient is a 70-year-old female with primary medical history includes A. fib on Coumadin, HLD, HTN, history of CVA, dementia, who came in to [facility] status post fall. As per her daughter Trisha, patient was in her bedroom and her [id number] heard a thump coming from her bedroom. She was found lying on the floor on her right side. Reports no lost of consciousness. Patient on Coumadin for A. fib found to have an INR of 4.7. She was given K Centra, Nimodipine, vitamin K at [facility]. Transferred to [facility] for further evaluation. CT of the head and brain without contrast showed multiple small patchy areas of acute arachnoid hemorrhage, within the bilateral frontal regions, within the right posterior parietal region, and the bilateral medial parietaloccipital regions as well as possibly along the left tentorium. Diffuse cerebral volume loss and chronic sequelae of small vessel ischemic disease. X-ray of the pelvis showed no fracture or dislocation or other acute abnormality. Degenerative spondylosis of the spine with some mild osteoarthritis of the hips. Demineralization. X-ray of the right shoulder showed normal right shoulder. X-ray of the lumbar spine showed no fracture, dislocation or other acute abnormality. Demineralization with multilevel degenerative spondylosis. Atherosclerotic vascular calcification. Chest x-ray showed no ede pulmonary edema, consolidation, or pleural effusion identified at this time. Interval development of minimal left basilar subsegmental atelectasis. Stable diffuse chronic interstitial change. Stable post-median sternotomy changes and moderate nonspecific glasgow-cardiomegaly. Patient states she hasn't been feeling well since yesterday. Today she feels "yucky" complaints of headache and nausea. Confused, forgetful secondary to dementia. Otherwise, denies SOB/ dyspnea. Denies chest pain, palpitation, dizziness. Denies fevers, chills, vomiting, diarrhea. As per daughter, patient is always irritable and uncooperative at times. Daughter denies any changes in medications. This is still second time patient has fallen from the past. CBC/BMP: 05/07/16 0400 05/07/16 0400 Significant Findings Laboratory Tests Test 05/06/16 05/07/16 15:51 04:00 Prothrombin Time 12.0 SEC (9.8-11.6) Hematocrit 46.6 % (35.0-46.0) Monocytes (%) (Auto) 12.5 % (0.0-8.0) Monocytes # (Auto) 1.0 TH/MM3 (0-0.9) Creatinine 1.05 MG/DL (0.50-1.00) Estimat Glomerular Filtration 52 ML/MIN (>89) Rate Imaging Last Impressions Head CT 05/07/16 0600 Signed Impressions: Service Date/Time: April 04:24 - CONCLUSION: Patchy subarachnoid blood. No comparisons. Shen Hu MD PE at Discharge GENERAL: Well-nourished, well-developed pleasantly demented elderly female patient in [facility]. Sitting upright in bed. SKIN: Warm and dry. Left dorsal forearm with well-circumscribed circular papular rash. HEAD: Normocephalic. Atraumatic. EYES: Pupils equal and round. No scleral icterus. No injection or drainage. ENT: No nasal bleeding or discharge. Mucous membranes pink and moist. NECK: Supple. Trachea midline. CARDIOVASCULAR: Regular rate and rhythm. S1, S2 noted. No murmur appreciated. RESPIRATORY: No accessory muscle use. Clear to auscultation. Breath sounds equal bilaterally. GASTROINTESTINAL: Abdomen soft, non-tender, nondistended. Normoactive bowel sounds x4. MUSCULOSKELETAL: No obvious deformities. Extremities without clubbing, cyanosis , or edema. NEUROLOGICAL: Awake and alert, oriented to self. No obvious cranial nerve deficits. Motor grossly within normal limits. Normal speech. PSYCHIATRIC: Appropriate mood and affect; insight and judgment limited Hospital Course 70-year-old female with hx of Afib on Coumadin, CAD, HTN, arthritis, initially presented to [facility] s/p fall. Found to have an INR of 4.7. She was given K Centra, Nimodipine, vitamin K at [facility]. Transferred to [facility] for further evaluation. Subarachnoid Hemorrhage: CT head images reviewed, showed multiple small patchy areas of acute arachnoid hemorrhage, within the bilateral frontal regions, right posterior parietal region, and bilateral medial parietaloccipital regions. - Neurosurgery consulted, will not use nimodipine as SAH will not cause spasms secondary to fall, if it was an aneurysm nimodipine is warranted. - Initially admitted to [facility] for closer monitoring, moved to Neuro floor on . - Continue Neuro checks. - Repeat CT 05/07 showed patchy subarachnoid blood - PT consulted, recommends rehab, case management assisting with placement - Appreciate neurosurgery assistance, cleared for d/c to rehab - Tylenol and [place] as needed for pain Supratherapeutic INR - INR 4.7. S/p Vit K at [facility]. - INR now subtherapeutic - Per neurosurgery, can restart Coumadin(5 mg) in 1 week (05/14) with strict INR goal of 2.0-2.5. Status post fall, no loss of consciousness: Imaging done at [facility] includes: -X-ray pelvis showed no fracture or dislocation or other acute abnormality; Degenerative spondylosis of the spine with some mild osteoarthritis of the hips. -X-ray right shoulder showed normal right shoulder. -X-ray lumbar spine showed no fracture, dislocation or other acute abnormality. Demineralization with multilevel degenerative spondylosis. Atherosclerotic vascular calcification. -Chest x-ray showed no ede pulmonary edema, consolidation, or pleural effusion identified at this time. Interval development of minimal left basilar subsegmental atelectasis. Stable diffuse chronic interstitial change. Stable post-median sternotomy changes and moderate nonspecific glasgow-cardiomegaly. -PT consulted as above, needs rehab placement HTN - continue amlodipine 2.5 mg, lisinopril 2.5 mg, metoprolol 25 bid -Vasotec, clonidine, hydralazine all available prn -Monitor BP trend. A. fib - EKG showed A. fib, slow ventricular rate 60 - Continue metoprolol, digoxin Hx of PE: on Coumadin as above. - plan to continue Coumadin in 1 week (05/14) Anxiety/depression-continue citalopram, alprazolam Dementia -continue Namenda. 05/11 no sitter or prn restraints needed since yesterday -Restraints and sitter if needed, currently stable on observation only. Depression -patient expressed depression to family. Consulted psychiatry, seen by Dr. Atkinson, increased Celexa and started trazodone, recommended outpatient follow-up. Tinea Corporis -on left dorsal forearm. Started on Lotrimin. DVT prophylaxis: SCD, chemoprophylaxis contraindicated with SAH as above Pt Condition on Discharge: Stable Discharge Disposition: Discharge to SNF Discharge Time: > 30 minutes Discharge Instructions DIET: Follow Instructions for: Heart Healthy Diet Activities you can perform: Regular-No Restrictions Activities to Avoid: Driving Follow up Referrals: Neurosurgery - 1 Week PCP Follow-up - 2-3 Days New Medications: Citalopram (Celexa) 20 Mg Tab 20 MG PO DAILY Control Depression #30 TAB Clotrimazole Topical (Clotrimazole Anti-Fungal Topical) 1% Cream 1 APPLIC TOPICAL Q12HR Infection #1 TUBE Hydrocodone-Acetaminophen (Hydrocodone-Acetaminophen) 5-325 mg Tab 1 TAB PO Q6HR PRN pain #12 TAB Metoprolol Tartrate (Metoprolol Tartrate) 25 Mg Tab 25 MG PO BID Regulate Heart Beat #60 TAB Trazodone (Trazodone) 50 Mg Tab 50 MG PO HS Control Depression #30 TAB Continued Medications: Alprazolam (Alprazolam) 0.25 Mg Tab 0.25 MG PO DAILY PRN ANXIETY #3 Ref 0 TAB (This prescription has been renewed) Amlodipine (Amlodipine) 2.5 Mg Tab 2.5 MG PO DAILY Blood Pressure Management #30 Ref 0 TAB Digoxin (Digoxin) 0.125 Mg Tab 0.125 MG PO DAILY Regulate Heart Beat #30 Ref 0 TAB Lisinopril (Lisinopril) 2.5 Mg Tab 2.5 MG PO DAILY #30 Ref 0 TAB Memantine (Memantine) 10 Mg Tab 10 MG PO DAILY Alzheimer's Dementia Ref [address] (Alivia) 1.2 Gm Tabdr 1.2 GM PO DAILY Take with a meal. Ulcerative Colitis Ref 0 TAB Discontinued Medications: Citalopram (Citalopram) 10 Mg Tab 10 MG PO DAILY Control Depression #30 Ref 0 TAB Metoprolol Tartrate (Metoprolol Tartrate) 50 Mg Tab 50 MG PO BID #60 Ref 0 TAB Meek Hardy MD May 09, 2016 12:17
[2016-05-09] MEDS: ACETAMINOPHEN/HYDROcodone 325 MG/5 MG TAB PO PRN (13:33)
[2016-05-09] MEDS ORDERED: DOCUSATE SODIUM 100 MG CAP PO PRN (13:45)
[2016-05-09] MEDS: DOCUSATE SODIUM 50 MG/SENNA 8.6 MG TAB PO SCH ×2 (13:45→20:17)
[2016-05-09] MEDS ORDERED: LACTULOSE SYRUP 20 GM/30 ML CUP PO PRN (13:45)
[2016-05-09] MEDS: POLYETHYLENE GLYCOL 17 GM PKG PO SCH (13:50)
[2016-05-09 20:00] VITALS: BP 130/69; PULSE 86; RESP 18; TEMP 99; O2SAT 97
[2016-05-09] MEDS: traZODone HCL 50 MG TAB PO SCH (20:18)
[2016-05-09 23:00] VITALS: PULSE 82
[2016-05-10] VITALS (8 sets, daily range): BP systolic 115–171; BP diastolic 64–79; PULSE 64–80; RESP 18–20; TEMP 96.5–98.8; O2SAT 93–99
[2016-05-10] MEDS: ACETAMINOPHEN 325 MG TAB PO PRN ×2 (00:48→05:25)
[2016-05-10] MEDS: SODIUM CHLORIDE 0.9% FLUSH 5 ML FLUSH FLUSH SCH ×2 (09:00→20:54)
[2016-05-10] MEDS: CLOTRIMAZOLE 1% CREAM 15 GM TOPICAL SCH ×3 (09:00→21:16)
[2016-05-10] MEDS: LIALDA 1.2 GM PO SCH (10:24)
[2016-05-10] MEDS: MEMANTINE HCL 10 MG TAB PO SCH (10:25)
[2016-05-10] MEDS: DIGOXIN 0.125 MG TAB PO SCH (10:25)
[2016-05-10] MEDS: CITALOPRAM HYDROBROMIDE 20 MG TAB PO SCH (10:25)
[2016-05-10] MEDS: METOPROLOL TARTRATE 25 MG TAB PO SCH ×2 (10:26→20:54)
[2016-05-10] MEDS: LISINOPRIL 5 MG TAB PO SCH (10:26)
[2016-05-10] MEDS: amLODIPine BESYLATE 5 MG TAB PO SCH (10:26)
[2016-05-10] MEDS: DOCUSATE SODIUM 50 MG/SENNA 8.6 MG TAB PO SCH ×2 (10:28→20:54)
[2016-05-10] MEDS: POLYETHYLENE GLYCOL 17 GM PKG PO SCH (10:30)
--- NOTE | 2016-05-10 11:14 | HHI.PR ---
Subjective Remarks Follow-up for depression and SAH. The patien denies any depression. She denies any headache or dizziness. Seen with RN at bedside. Objective Vitals Vital Signs Date Time Temp Pulse Resp B/P Pulse Ox O2 Delivery O2 Flow Rate FiO2 05/10/16 08:26 96.5 64 20 148/67 96 05/10/16 04:33 98.8 80 18 115/79 97 05/10/16 00:29 97.8 80 18 128/64 96 05/09/16 23:11 Room Air 05/09/16 23:00 82 05/09/16 20:00 99.0 86 18 130/69 97 05/09/16 14:36 18 05/09/16 14:17 96 Room Air 05/09/16 12:00 98.1 84 18 125/68 96 I/O 05/09/16 05/09/16 05/09/16 05/10/16 05/10/16 05/10/16 07:00 15:00 23:00 07:00 15:00 23:00 Intake Total 320 ml Balance 320 ml Intake Oral 320 ml # Voids 2 2 # Bowel Movements 0 Result Diagram: 05/07/16 0400 05/07/16 0400 Imaging Last Impressions Head CT 05/07/16 0600 Signed Impressions: Service Date/Time: April 04:24 - CONCLUSION: Patchy subarachnoid blood. No comparisons. Shen Hu MD Objective Remarks GENERAL: Well-developed well-nourished. In no acute distress. SKIN: Warm and dry. No lesions noted. HEENT: Normocephalic. Pupils equal and round. Mucous membranes pink and moist. CARDIOVASCULAR: Regular rate and rhythm. No murmur appreciated. RESPIRATORY: No accessory muscle use. Clear to auscultation. Breath sounds equal bilaterally. GASTROINTESTINAL: Abdomen soft, non-tender, nondistended. Bowel sounds x4. MUSCULOSKELETAL: No obvious deformities. No clubbing or cyanosis. No edema. NEUROLOGICAL: Awake and alert. No focal neurological deficits. Moves upper and lower extremities spontaneously. Normal speech. PSYCHIATRIC: Pleasantly confused mood and affect; insight and judgment limited. Denies depression. Procedures none A/P Problem List: (1) SAH (subarachnoid hemorrhage) ICD Code: I60.9 Status: Acute (2) SDH (subdural hematoma) ICD Code: I62.00 Status: Acute (3) Supratherapeutic INR ICD Code: R79.1 Status: Acute (4) HLD (hyperlipidemia) ICD Code: E78.5 Status: Chronic (5) HTN (hypertension) ICD Code: I10 Status: Chronic (6) Dementia ICD Code: F03.90 Status: Chronic Assessment and Plan 70-year-old female with hx of Afib on Coumadin, CAD, HTN, arthritis, initially presented to [facility] s/p fall. Found to have an INR of 4.7. She was given K Centra, Nimodipine, vitamin K at [facility]. Transferred to [facility] for further evaluation. Subarachnoid Hemorrhage: CT head images reviewed, showed multiple small patchy areas of acute arachnoid hemorrhage, within the bilateral frontal regions, right posterior parietal region, and bilateral medial parietaloccipital regions. - Neurosurgery consulted, will not use nimodipine as SAH will not cause spasms secondary to fall, if it was an aneurysm nimodipine is warranted. - Initially admitted to [facility] for closer monitoring, moved to Neuro floor on . - Continue Neuro checks. - Repeat CT 05/07 showed patchy subarachnoid blood - PT consulted, recommends rehab, case management assisting with placement - Appreciate neurosurgery assistance, cleared for d/c to rehab Supratherapeutic INR - INR 4.7. S/p Vit K at [facility]. - Repeat INR 1.0 - Per neurosurgery, can restart Coumadin(5 mg) in 1 week (05/14) with strict INR goal of 2.0-2.5. Status post fall, no loss of consciousness: Imaging done at [facility] includes: -X-ray pelvis showed no fracture or dislocation or other acute abnormality; Degenerative spondylosis of the spine with some mild osteoarthritis of the hips. -X-ray right shoulder showed normal right shoulder. -X-ray lumbar spine showed no fracture, dislocation or other acute abnormality. Demineralization with multilevel degenerative spondylosis. Atherosclerotic vascular calcification. -Chest x-ray showed no ede pulmonary edema, consolidation, or pleural effusion identified at this time. Interval development of minimal left basilar subsegmental atelectasis. Stable diffuse chronic interstitial change. Stable post-median sternotomy changes and moderate nonspecific glasgow-cardiomegaly. -PT consulted as above, needs rehab placement HTN - continue amlodipine 2.5 mg, lisinopril 2.5 mg, metoprolol 25 bid -Vasotec, clonidine, hydralazine all available prn -Monitor BP trend. A. fib - EKG showed A. fib, slow ventricular rate 60 - Continue metoprolol, digoxin Hx of PE: on Coumadin as above. - plan to continue Coumadin in 1 week (05/14) Anxiety/depression-continue citalopram, alprazolam Dementia -continue Namenda. Restraints and sitter if needed, observation currently. Depression -patient expressed depression to family. Consulted psychiatry, seen by Dr. Atkinson, increased Celexa and started trazodone, recommended outpatient follow-up. Tinea Corporis -on left dorsal forearm. Started on Lotrimin. DVT prophylaxis: SCD, chemoprophylaxis contraindicated with SAH as above Written by Piotr Beaulieu, acting as scribe for Dr. Hardy on 05/10/16 at 11:13. The documentation accurately reflects the work performed [id number] by ok on at [id number]. Discharge Planning Discharge to SNF when arranged needs to be off restraints and no sitter for 24 hours DC'd as of this morning. Piotr Beaulieu May 10, 2016 11:14 Meek Hardy MD May 10, 2016 15:33
[2016-05-10] MEDS: traZODone HCL 50 MG TAB PO SCH (20:54)
[2016-05-11 01:48] VITALS: BP 122/58; PULSE 66; RESP 18; TEMP 98.1; O2SAT 96
[2016-05-11 06:45] VITALS: BP 142/93; PULSE 70; RESP 20; TEMP 97.3; O2SAT 97
[2016-05-11 07:30] VITALS: BP 184/71; PULSE 70; RESP 20; TEMP 97.1; O2SAT 99
[2016-05-11] MEDS: POLYETHYLENE GLYCOL 17 GM PKG PO SCH (09:00)
[2016-05-11] MEDS: amLODIPine BESYLATE 5 MG TAB PO SCH (09:00)
[2016-05-11] MEDS: CLOTRIMAZOLE 1% CREAM 15 GM TOPICAL SCH (09:00)
[2016-05-11] MEDS: MEMANTINE HCL 10 MG TAB PO SCH (09:01)
[2016-05-11] MEDS: LIALDA 1.2 GM PO SCH (09:01)
[2016-05-11] MEDS: CITALOPRAM HYDROBROMIDE 20 MG TAB PO SCH (09:01)
[2016-05-11] MEDS: LISINOPRIL 5 MG TAB PO SCH (09:02)
[2016-05-11] MEDS: METOPROLOL TARTRATE 25 MG TAB PO SCH (09:02)
[2016-05-11] MEDS: DOCUSATE SODIUM 50 MG/SENNA 8.6 MG TAB PO SCH (09:02)
[2016-05-11] MEDS: DIGOXIN 0.125 MG TAB PO SCH (09:02)
[2016-05-11] MEDS: SODIUM CHLORIDE 0.9% FLUSH 5 ML FLUSH FLUSH SCH (09:03)
[2016-05-11 11:30] VITALS: BP 151/83; PULSE 76; RESP 20; TEMP 97.8; O2SAT 97
--- NOTE | 2016-05-11 12:58 | HHI.PR ---
Subjective Remarks Follow-up for SAH. The patient complains of some headache today. However she is refusing medications today, states she doesn't like them. She denies any depression. Objective Vitals Vital Signs Date Time Temp Pulse Resp B/P Pulse Ox O2 Delivery O2 Flow Rate FiO2 05/11/16 09:00 98 Room Air 05/11/16 07:30 97.1 70 20 184/71 99 05/11/16 06:45 97.3 70 20 142/93 97 05/11/16 04:50 Room Air 05/11/16 01:48 98.1 66 18 122/58 96 05/10/16 21:57 97.8 77 20 145/68 96 05/10/16 15:49 96.7 69 20 171/73 99 I/O 05/10/16 05/10/16 05/10/16 05/11/16 05/11/16 05/11/16 07:00 15:00 23:00 07:00 15:00 23:00 Intake Total 360 ml 240 ml Balance 360 ml 240 ml Intake Oral 360 ml 240 ml # Voids 2 2 # Bowel Movements 0 1 Result Diagram: 05/07/1639905/07/16399 Objective Remarks GENERAL: Well-developed well-nourished. In no acute distress. SKIN: Warm and dry. No lesions noted. HEENT: Normocephalic. Pupils equal and round. Mucous membranes pink and moist. CARDIOVASCULAR: Regular rate and rhythm. No murmur appreciated. RESPIRATORY: No accessory muscle use. Clear to auscultation. Breath sounds equal bilaterally. GASTROINTESTINAL: Abdomen soft, non-tender, nondistended. Bowel sounds x4. MUSCULOSKELETAL: No obvious deformities. No clubbing or cyanosis. No edema. NEUROLOGICAL: Awake and alert. No focal neurological deficits. Moves upper and lower extremities spontaneously. Normal speech. PSYCHIATRIC: Pleasantly confused mood and affect; insight and judgment limited. Denies depression. Procedures none A/P Problem List: (1) SAH (subarachnoid hemorrhage) ICD Code: I60.9 Status: Acute (2) SDH (subdural hematoma) ICD Code: I62.00 Status: Acute (3) Supratherapeutic INR ICD Code: R79.1 Status: Acute (4) HLD (hyperlipidemia) ICD Code: E78.5 Status: Chronic (5) HTN (hypertension) ICD Code: I10 Status: Chronic (6) Dementia ICD Code: F03.90 Status: Chronic Assessment and Plan 70-year-old female with hx of Afib on Coumadin, CAD, HTN, arthritis, initially presented to [facility] s/p fall. Found to have an INR of 4.7. She was given K Centra, Nimodipine, vitamin K at [facility]. Transferred to [facility] for further evaluation. Subarachnoid Hemorrhage: CT head images reviewed, showed multiple small patchy areas of acute arachnoid hemorrhage, within the bilateral frontal regions, right posterior parietal region, and bilateral medial parietaloccipital regions. - Neurosurgery consulted, will not use nimodipine as SAH will not cause spasms secondary to fall, if it was an aneurysm nimodipine is warranted. - Initially admitted to [facility] for closer monitoring, moved to Neuro floor on . - Continue Neuro checks. - Repeat CT 05/07 showed patchy subarachnoid blood - PT consulted, recommends rehab, case management assisting with placement - Appreciate neurosurgery assistance, cleared for d/c to rehab - Tylenol and [place] as needed for pain Supratherapeutic INR - INR 4.7. S/p Vit K at [facility]. - INR now subtherapeutic - Per neurosurgery, can restart Coumadin(5 mg) in 1 week (05/14) with strict INR goal of 2.0-2.5. Status post fall, no loss of consciousness: Imaging done at [facility] includes: -X-ray pelvis showed no fracture or dislocation or other acute abnormality; Degenerative spondylosis of the spine with some mild osteoarthritis of the hips. -X-ray right shoulder showed normal right shoulder. -X-ray lumbar spine showed no fracture, dislocation or other acute abnormality. Demineralization with multilevel degenerative spondylosis. Atherosclerotic vascular calcification. -Chest x-ray showed no ede pulmonary edema, consolidation, or pleural effusion identified at this time. Interval development of minimal left basilar subsegmental atelectasis. Stable diffuse chronic interstitial change. Stable post-median sternotomy changes and moderate nonspecific glasgow-cardiomegaly. -PT consulted as above, needs rehab placement HTN - continue amlodipine 2.5 mg, lisinopril 2.5 mg, metoprolol 25 bid -Vasotec, clonidine, hydralazine all available prn -Monitor BP trend. A. fib - EKG showed A. fib, slow ventricular rate 60 - Continue metoprolol, digoxin Hx of PE: on Coumadin as above. - plan to continue Coumadin in 1 week (05/14) Anxiety/depression-continue citalopram, alprazolam Dementia -continue Namenda. 05/11 no sitter or prn restraints needed since yesterday -Restraints and sitter if needed, currently stable on observation only. Depression -patient expressed depression to family. Consulted psychiatry, seen by Dr. Atkinson, increased Celexa and started trazodone, recommended outpatient follow-up. Tinea Corporis -on left dorsal forearm. Started on Lotrimin. DVT prophylaxis: SCD, chemoprophylaxis contraindicated with SAH as above Written by Piotr Beaulieu, acting as scribe for Dr. Hardy on 05/11/16 at 12:56 The documentation accurately reflects the work performed [id number] by me on at [id number] Discharge Planning Discharge to SNF when arranged. Piotr Beaulieu May 11, 2016 12:58 Meek Hardy MD May 11, 2016 16:41
[2016-05-11 15:56] VITALS: BP 158/86; PULSE 88; RESP 20; TEMP 97.6; O2SAT 97
[2016-05-11 16:23] VITALS: PULSE 69
== END 2016-05-11 18:17 | DRG 86 ==
LOC: NEPC 09:19 → NEDA 11:06 → N03B 18:19 → N03A 05-08 07:14 → N05B 05-08 14:06
PROVIDERS: ADMIT Internal Medicine; ATTEND Internal Medicine
DX: S06.6X0A Traumatic subarachnoid hemorrhage without loss of consciousness, initial encounter (principal); F33.1 Major depressive disorder, recurrent, moderate; F03.90 Unspecified dementia, unspecified severity, without behavioral disturbance, psychotic disturbance, mood disturbance, and anxiety; S06.5X0A Traumatic subdural hemorrhage without loss of consciousness, initial encounter; I48.91 Unspecified atrial fibrillation; I10 Essential (primary) hypertension; B35.4 Tinea corporis; I25.10 Atherosclerotic heart disease of native coronary artery without angina pectoris; Z78.1 Physical restraint status; E78.5 Hyperlipidemia, unspecified; R79.1 Abnormal coagulation profile; W19.XXXA Unspecified fall, initial encounter; Y93.9 Activity, unspecified; Y92.003 Bedroom of unspecified non-institutional (private) residence as the place of occurrence of the external cause; M85.80 Other specified disorders of bone density and structure, unspecified site; M47.9 Spondylosis, unspecified; F41.9 Anxiety disorder, unspecified; Z79.01 Long term (current) use of anticoagulants; Z86.73 Personal history of transient ischemic attack (TIA), and cerebral infarction without residual deficits; M16.0 Bilateral primary osteoarthritis of hip; Z95.1 Presence of aortocoronary bypass graft; R29.6 Repeated falls; Z86.711 Personal history of pulmonary embolism
CPT/HCPCS: 70450; 80048; 85025; 85610; 99285; J0171; J0360; J0461; J2270; J2405